=== PATIENT | male | born 2000 | race Caucasian/White ===

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

== ENCOUNTER 2024-02-20 00:34 | Emergency (ER) | payer OTHER ==
[~2024-02-20] VITALS: Ht 175.3 cm; Wt 62.0 kg
[2024-02-20] MEDS ORDERED: AMPH1CAP16 PO (00:50)
[2024-02-20 03:06] VITALS: BP 113/69; TEMP 98; O2SAT 100
== END 2024-02-20 04:44 | disposition left against medical advice (07) ==
LOC: M ED 00:34
DX: Z53.21 Procedure and treatment not carried out due to patient leaving prior to being seen by health care provider (principal)